=== PATIENT | male | born 1960 | race Caucasian/White ===

== ENCOUNTER 2018-09-15 11:18 | Emergency (ER) | payer OTHER ==
[~2018-09-15] VITALS: Ht 180.3 cm; Wt 168.5 kg
[2018-09-15] MEDS ORDERED: SERT-141 PO (11:24)
[2018-09-15] MEDS ORDERED: ELIQ5TAB PO (11:24)
[2018-09-15] MEDS ORDERED: GABA-843 PO (11:24)
--- NOTE | 2018-09-15 12:33 | REP ---
Right upper extremity duplex Doppler venous ultrasound. Real time compression and duplex Doppler evaluation of the right upper extremity deep venous system is performed. The right subclavian, jugular, axillary, brachial, basilic and cephalic veins are fully compressible where accessible with transducer pressure, and demonstrate no intraluminal thrombus and normal venous waveforms. There is no evidence of deep venous thrombosis. Impression: No evidence of deep venous thrombosis of the right upper extremity deep vein system. Electronically Signed by Booker Guzman MD 09/15/2018 12:25 P
--- NOTE | 2018-09-15 12:48 | REP ---
RIGHT HAND SERIES: Four view of the right hand are performed. There is no acute fracture or dislocation. There is mild narrowing and spurring at the joint between the trapezium and base of first metacarpal. There is moderately severe narrowing of the second metacarpal phalangeal joint with spurring of the head of the third metatarsal. There is mild subchondral cystic change in the head of the third metacarpal. There is mild narrowing and spurring at the second metacarpal phalangeal joint. IMPRESSION: Degenerative changes. No acute fracture or dislocation. Electronically Signed by Booker Guzman MD 09/15/2018 01:03 P
[2018-09-15 12:52] LABS: BASO # 0.1 10^3/uL (0.0-0.2); BASO % 0.6 % (0.0-1.0); EOS # 0.2 10^3/uL (0.0-0.50); EOS % 2.7 % (0.0-3.0); HEMATOCRIT 45.1 % (42.0-52.0); HEMOGLOBIN 15.3 g/dl (13.5-17.5); LYMPH # 2.1 10^3/uL (1.5-4.5); MEAN CORPUSCULAR HEMOGLOBIN 28.5 pg (27.0-33.0); MEAN CORPUSCULAR HGB CONC 33.9 g/dl (32.0-36.5); MONO # 0.8 10^3/uL (0.0-0.8); MONO % 8.7 % (0.0-5.0); NEUTROPHILS # 5.5 10^3/uL (1.8-7.7); NEUTROPHILS % 63.3 % (36.0-66.0); PLATELET COUNT, AUTOMATED 175 10^3/uL (150-450); RED BLOOD COUNT 5.37 10^6/uL (4.30-6.10); WHITE BLOOD COUNT 8.7 10^3/uL (4.0-10.0)
[2018-09-15 13:09] LABS: INR 0.9; PROTHROMBIN TIME 12.2 SECONDS (12.1-14.4)
[2018-09-15 13:10] LABS: PARTIAL THROMBOPLASTIN TIME 26.4 SECONDS (25.4-37.6)
[2018-09-15 13:17] LABS: BLOOD UREA NITROGEN 10 MG/DL (7-18); C REACTIVE PROTEIN QUANTITATIV 1.91 MG/DL (0.00-0.30); CALCIUM LEVEL 7.9 MG/DL (8.5-10.1); CARBON DIOXIDE LEVEL 28 MEQ/L (21-32); CHLORIDE LEVEL 105 MEQ/L (98-107); CREATININE FOR GFR 1.12 MG/DL (0.70-1.30); GLOMERULAR FILTRATION RATE > 60.0 (>56); GLUCOSE, FASTING 199 MG/DL (70-100); SODIUM LEVEL 139 MEQ/L (136-145); URIC ACID 7.3 MG/DL (3.5-7.2)
[2018-09-15 13:29] LABS: ERYTHROCYTE SEDIMENTATION RATE 21 mm/hr (0-20)
[2018-09-15] MEDS ORDERED: KEFL500C17 PO (13:42)
[2018-09-15] MEDS ORDERED: COLC1TAB13 PO (13:45)
[2018-09-15 14:10] VITALS: BP 160/94
== END 2018-09-15 14:16 | disposition home or self-care (01) ==
LOC: M ED 11:18
DX: L03.113 Cellulitis of right upper limb (principal); E11.9 Type 2 diabetes mellitus without complications; I10 Essential (primary) hypertension; Z79.899 Other long term (current) drug therapy; Z79.01 Long term (current) use of anticoagulants; Z88.8 Allergy status to other drugs, medicaments and biological substances